=== PATIENT | male | born 1980 | race Caucasian/White ===

== ENCOUNTER 2020-03-07 15:02 | Emergency (ER) | payer OTHER, SELFPAY ==
[2020-03-07 15:34] VITALS: BP 142/102; PULSE 82; RESP 14; TEMP 36.7; O2SAT 97; BMI 33.2
--- NOTE | 2020-03-07 16:12 | ED_ITS ---
HPI - Wound/Laceration General: Chief Complaint: Wound/Laceration Stated Complaint: left hand lac Time Seen by Provider: 03/07/20 15:55 History of Present Illness: HPI narrative: Accidentally stuck a knife in his left hand skin fold between thumb and forefinger just a little while ago. No active bleeding. Tetanus up-to-date. Onset (ago): minute(s) Extremity Location: Left: hand Place: home Patient tetanus UTD: Yes Context: accidental Associated symptoms: Reports no associated symptoms Physical Exam Narrative: EXAM NARRATIVE: Laceration between thumb and forefinger of his left hand happened day stuck a knife into it accidentally Const: COMMON NORMALS: no acute distress Psych: COMMON NORMALS: mental status grossly normal Skin: NARRATIVE SKIN EXAM: laceration -stellate- snuffbox area of left hand closed with skin adhesive and Steri-Strips Procedures Laceration Laceration 1: Site: hand Side (If applicable): left Size (cm): 4 Description: stellate Depth: simple, single layer Pre-repair: wound explored and deep structures intact Skin layer closed with: other (Skin adhesive and Steri-Strips) Course Vital Signs: Vital signs: Vital Signs Temperature 98.1 F 03/07/20 15:34 Pulse Rate 82 03/07/20 15:34 Respiratory Rate 14 03/07/20 15:34 Blood Pressure 142/102 03/07/20 15:34 Pulse Oximetry 97 03/07/20 15:34 MDM - Wound/Laceration MDM Narrative: Medical decision making narrative: Wound closed without any difficulty with Steri-Strips skin adhesive and Coban. Instructed watch out for signs of infection. Discharge Plan Discharge Patient Disposition: Home Clinical Impression: Laceration Condition: Stable Discharge Orders: Discharge ED (Routine); Ordered 03/07/20 Ordered By: Tk Thurston Referrals: [facility] [Primary Care Provider] - Discharge Diet: Usual diet Discharge Activity: Resume usual activity Patient Instructions: Skin Adhesive Care (ED), Suture Care - Adhesive Skin Strips Activity Restrictions/Additional Instructions: Watch for signs symptoms of infection. Keep dressing on for at least 2448 hrs. follow-up as needed. 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
== END 2020-03-07 16:24 | disposition home or self-care (01) ==
PROVIDERS: Emergency Provider Nurse Practitioner Family
DX: S61.412A Laceration without foreign body of left hand, initial encounter (principal); W26.0XXA Contact with knife, initial encounter
CPT/HCPCS: 12002; 12345; 99281; 99282

== ENCOUNTER 2020-11-20 05:28 | Emergency (ER) | payer OTHER, SELFPAY ==
[2020-11-20 05:33] VITALS: BP 134/94; PULSE 74; RESP 18; TEMP 36.7; O2SAT 97; BMI 33.6
--- NOTE | 2020-11-20 07:03 | W.ED.GENADLT ---
HPI - General Adult General: Chief complaint: Eye Problems Stated complaint: R eye Irritation Time Seen by Provider: 11/20/20 07:00 History of Present Illness: HPI narrative: Patient is a 40-year-old male without any significant past medical history presents the emergency room with concerns for a foreign object sensation in the right eye. Patient says that he noticed he had a sensation about 4 days ago since then, has noticed redness in the right eye. Denies any allergic conjunctivitis, drainage from the eyes, fever/chills, focal weakness, and headache, phobia or eye pain. NO hx of contact lenses use. Onset:4 days ago Duration:4 days Location:home Severity:mild Review of Systems Narrative: Constitutional: No fever, no chills. HEENT: No vision changes, +R eye conjunctivitis CV: No chest pain, no palpitations PULM: no cough, no dyspnea. GI: No abdominal pain, no N/V/D. : No dysuria MSKEL: No muscle pain SKIN: No new rashes, no lesions. NEURO: No headache, no focal weakness. HEME: No visible bruises PSYCH: Normal mood Physical Exam Narrative: EXAM NARRATIVE: Head: Atraumatic Eyes: PERRL, conjunctiva injection L eye, +flurosceine test showed corneal abrasion of the R eye, no retained foreign objects on upper and lower lid eversion ENT: Mucous membrane moist NECK: Supple, ROM intact LUNGS: LCTAB, no crackles/rhonchi CV: RRR ABDOMEN: Soft, nontender in all quadrants EXTREMITY: Normal ROM SKIN: No rash or erythema NEURO: Awake and alert, no focal motor deficits PSYCH: Normal mood and affect Course Vital Signs: Vital signs: Vital Signs Temperature 97.7 F 11/20/20 07:42 Pulse Rate 65 11/20/20 08:17 Respiratory Rate 16 11/20/20 08:17 Blood Pressure 141/91 11/20/20 08:17 Pulse Oximetry 97 11/20/20 08:17 MDM - General Adult MDM Narrative: Medical decision making narrative: 40-year-old male presents the emergency room with severe right-sided eye pain. Exam, patient has conjunctival injection and right-sided corneal abrasion under flurosceine stain. At the present time, I do not see any corneal ulceration. I discussed case with Dr. Engle from Opthalmology on Sunday so that patient can be seen for corneal abrasion to ensure there is no progression to ulceration. Patient aware of a call from our catalytic case operator to schedule for appointment(s) and verbalizes understanding of the importance of following up. Rx erythromycin ointment Disposition: Discharge. Patient is given strict return precaution any worsening pain, fever/chills, nausea/vomiting, or any new concerning complaints. Discharge Plan Discharge Patient Disposition: Home Clinical Impression: Conjunctivitis, Abrasion, corneal Condition: Stable Prescriptions: New erythromycin 5 mg/gram (0.5 %) ointment 1 applic ophthalmic (eye) DAILY 5 Days Qty: 3.5 RF: 0 Discharge Orders: Discharge ED (Routine); Ordered 11/20/20 Ordered By: Alhaji Mei Referrals: [facility] [Primary Care Provider] - Discharge Diet: Advance as tolerated Discharge Activity: Resume usual activity Patient Instructions: Conjunctivitis (ED) Activity Restrictions/Additional Instructions: Our catalytic case operator will have you follow-up with Dr Engle in the next few days for assessment of conjunctivitis. You would be expected to have a phone call with our catalytic case operator who will put you on the schedule. Please see Dr. Engle at 9:00AM on Sunday morning. Come back to the emergency room if any fever/chills, double vision, eye pain, any new or concerning complaints. Use your ointment as instructed. 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
[2020-11-20] MEDS: eye irrigation 30 mL Btl EYE-RIGHT (07:36)
[2020-11-20] MEDS: fluorescein 1 mg Strip EYE-RIGHT (07:36)
[2020-11-20] MEDS: tetracaine 0.5% Op Soln 4 mL Btl 1 DROP EYE-RIGHT (07:36)
[2020-11-20 07:42] VITALS: BP 152/102; PULSE 71; RESP 18; TEMP 36.5; O2SAT 98
[2020-11-20 08:17] VITALS: BP 141/91; PULSE 65; RESP 16; O2SAT 97
--- NOTE | 2020-11-22 11:39 | DCPLANNER ---
press department manager had message to schedule a follow up appointment for patient with Dr. Engle. press department manager called phone number [phone], patient, a recording stated that this phone number was no longer in service. press department manager then called [phone], patients , a recording stated that this phone number was no longer in service.
== END 2020-11-20 08:14 | disposition home or self-care (01) ==
PROVIDERS: Emergency Provider Emergency Medicine
DX: S05.01XA Injury of conjunctiva and corneal abrasion without foreign body, right eye, initial encounter (principal); H10.9 Unspecified conjunctivitis; X58.XXXA Exposure to other specified factors, initial encounter
CPT/HCPCS: 99282

== ENCOUNTER 2023-02-28 06:00 | Outpatient (RCR) | payer OTHER, SELFPAY | END 2023-03-21 23:59 | disposition home or self-care (01) | LOC: TPT 06:00 | PROVIDERS: Visit Provider Family Medicine | DX: M54.50 Low back pain, unspecified (principal) | CPT/HCPCS: 97110; 97162 ==

== ENCOUNTER 2023-03-22 06:00 | Outpatient (RCR) | payer OTHER, SELFPAY | END 2023-04-19 23:59 | disposition home or self-care (01) | LOC: TPT 06:00 | PROVIDERS: Visit Provider Family Medicine | DX: M54.50 Low back pain, unspecified (principal) | CPT/HCPCS: 97110 ==